=== PATIENT | female | born 1995 | race Two or more races ===

== ENCOUNTER 2019-01-15 06:18 | Inpatient (IN) | payer MEDICAID ==
[2019-01-15] MEDS ORDERED: Ondansetron 4 MG/2 ML SDV IVPUSH PRN (07:11)
[2019-01-15] MEDS ORDERED: Sodium Chloride 0.9% 10 ML SDV FLUSH PRN (07:11)
[2019-01-15] MEDS ORDERED: Nalbuphine 20 MG/ML 1 ML Syringe IVPUSH PRN (07:11)
[2019-01-15] MEDS ORDERED: Oxytocin/Lactated Ringers 10 UNIT/1,000 ML BAG IV SCH ×2 (07:15)
[2019-01-15] MEDS ORDERED: fentaNYL 100 MCG/2 ML SDV EPIDUR PRN (09:45)
[2019-01-15] MEDS ORDERED: diphenhydrAMINE 50 MG/ML SDV IVPUSH PRN (09:45)
[2019-01-15] MEDS ORDERED: fentaNYL/Bupivacaine-NS 2 MCG/ML-0.125%/PF 100 ML Bag EPIDUR PRN (09:45)
[2019-01-15] MEDS ORDERED: ePHEDrine 50 MG/ML SDV IVPUSH PRN (09:45)
--- NOTE | 2019-01-15 09:47 | PCM.LDHP ---
L&D History of Present Illness - General Date of Service: 01/15/19 Admit Problem/Dx: Patient Status Order with Admit Dx/Problem 01/15/19 06:32 Patient Status [ADT] Routine 01/15/19 07:12 Patient Status [ADT] Routine Admission Diagnosis/Problem Admission Diagnosis/Problem 01/15/19 09:37 Gia is a 23-year-old 2 para 0010 female who was admitted on the a.m. of 01/15/2019 with reported spontaneous rupture membranes at 0300 hrs. She is in early active labor. Amniotic fluid is clear. - History of Present Illness Introduction:: Gia Is a 23-year-old 2 para 0010 female who is admitted with spontaneous rupture membranes on the a.m. of 01/15/2019. Patient is a of Dr. Harris's with an JENELLE of 02/03/2019 by LMP and ultrasound placing her at approximately 37-1/7 weeks gestational age upon admission. Patient had a gush of fluid at approximately 0300 hrs. It is been clear. She started having mild contractions which she reports as menstrual cramps. Baby has been active. course: Patient entered care late at approximately 23-5/7 weeks as she and her were attempting to locate a oyster grower to manage the but was not able to find one in this area. She was seen approximately 6 times throughout the . Her weight gain was from approximately 118 pounds to 138 pounds for 20 pound weight gain. She reported good activity. She had T dap immunization. She did develop itching late in and reports that she has intrahepatic cholestasis of . She reports this was documented with laboratory testing showing increased liver function studies and bile acid levels. That data is not available in her chart. Laboratory results in include the following: Blood is O+ with a negative antibody screen. Rubella titer is equivocal. RPR is nonreactive. Hepatitis B surface anesthesia and is negative. HIV assay is negative. First visit labs including hemoglobin 12.4 and platelets 235. Her 1 hour glucose was 90 mg/dL. GC was not identified. Group B strep screen was negative by patient's history. Allergies: Environmental. No medication allergies Medications: 1. vitamins 1 daily 2. Patient just is finished a course of antibiotics for breast infection. Past medical history: 1. Miscarriagefirst trimesterAugust 2017 2. Intrahepatic cholestasis of with this by patient history. Past surgical history: Unremarkable Family history: Mother is alive and well. Father with hypercholesterolemia. One sister with anemia in . 3 brothers alive and well. Maternal grandmother with hypertension with resultant eye problems in one of her eyes related to this. Maternal grandfather alive and well. Paternal grandmother alive and well. Paternal grandfather secondary to motor vehicle accident. Anesthesia, bleeding, blood clotting problems noted in the family. Social history: Patient moved to the [place], [place] approximately 1 year ago because of her 's work. He works at [employer] in the [employer] as a concrete mixing truck driver. She does not use any significant most alcohol, drugs or tobacco. In [place], [place]. Review of systems: In general patient has no complaints. Skin: Negative with the exception of itching which has improved a lot the last week. Lungs: No infectious symptoms or shortness of breath Cardiovascular: No chest pain or exercise intolerance Breasts: History of infection with a lump that was biopsied in [place]. It was found to be benign. [place] to be infectious. It has not resolved by patient history. Patient wishes to breast-feed. GI: Negative : Negative Musculoskeletal: Negative Neurological: Negative In general the patient is well-developed, well-nourished, pleasant female of stated age in no acute distress. Skin is warm dry without lesions. HEENT, neck and back within normal limits. Lungs are clear with good breath sounds in all lung willson. Cardiovascular exam shows regular and rhythm without murmurs. Abdomen is flat, soft, nontender without masses or organomegaly. Positive bowel sounds are noted. No inguinal lymphadenopathy or hernias are noted. Genital exam shows cervix to be 2 cm, 60% effaced, soft, posterior, -3 station, presence of clear amniotic fluid in the vaginal vault consistent with spontaneous rupture membranes. Extremities and neurological exam are grossly within normal limits. - Related Data Allergies/Adverse Reactions: Allergies Allergy/AdvReac Type Severity Reaction Status Date / Time pollen extracts Allergy Itching Verified 01/15/19 06:31 Home Medications: Home Meds PNV95/Ferrous Fumarate/FA [ Tablet] 1 tab PO DAILY 01/15/19 [History] Past Medical History - Past Health History Medical/Surgical History: Denies Medical/Surgical History Gastrointestinal History: Reports: Cholelithiasis Other Gastrointestinal History: with Social & Family History - Family History Family Medical History: Noncontributory - Tobacco Use Smoking Status *Q: Never Smoker Second Hand Smoke Exposure: No - Caffeine Use Caffeine Use: Reports: None - Recreational Drug Use Recreational Drug Use: No H&P Review of Systems - Review of Systems: Review Of Systems: See Below L&D Exam - Exam Exam: See Below - Vital Signs Vital Signs: Last Vital Signs Temp 36.6 C 01/15/19 06:35 Pulse 94 01/15/19 06:37 Resp 16 01/15/19 06:37 BP 134/93 H 01/15/19 06:37 Pulse Ox Weight: 62.686 kg - Patient Data Lab Results Last 24 hrs: Laboratory Results - last 24 hr 01/15/19 01/15/19 01/15/19 Range/Units 06:40 07:24 07:24 WBC 10.03 (3.98-10.04) K/mm3 RBC 4.26 (3.98-5.22) M/mm3 Hgb 12.3 (11.2-15.7) gm/L Hct 37.6 (34.1-44.9) % MCV 88.3 (79.4-94.8) fl MCH 28.9 (25.6-32.2) pg MCHC 32.7 (32.2-35.5) g/dl RDW Std Deviation 41.8 (36.4-46.3) fL Plt Count 254 (182-369) K/mm3 MPV 12.6 H (9.4-12.3) fl Neut % (Auto) 78.4 H (34.0-71.1) % Lymph % (Auto) 14.3 L (19.3-51.7) % [place] % (Auto) 5.8 (4.7-12.5) % Eos % (Auto) 0.9 (0.7-5.8) Baso % (Auto) 0.2 (0.1-1.2) % Neut # (Auto) 7.87 H (1.56-6.13) K/mm3 Lymph # (Auto) 1.43 (1.18-3.74) K/mm3 [place] # (Auto) 0.58 H (0.24-0.36) K/mm3 Eos # (Auto) 0.09 (0.04-0.36) K/mm3 Baso # (Auto) 0.02 (0.01-0.08) K/mm3 Sodium 136 (136-145) mEq/L Potassium 3.7 (3.5-5.1) mEq/L Chloride 102 (98-107) mEq/L Carbon Dioxide 23 (21-32) mEq/L Anion Gap 14.7 (5-15) BUN 7 (7-18) mg/dL Creatinine 0.6 (0.55-1.02) mg/dL Est Cr Clr Drug Dosing 106.53 mL/min Estimated GFR (MDRD) > 60 (>60) mL/min BUN/Creatinine Ratio 11.7 L (14-18) Glucose 95 (74-106) mg/dL Calcium 8.5 (8.5-10.1) mg/dL Total Bilirubin 1.2 H (0.2-1.0) mg/dL AST 40 H (15-37) U/L ALT 112 H (14-59) U/L Alkaline Phosphatase 426 H (46-116) U/L Total Protein 7.6 (6.4-8.2) g/dl Albumin 2.4 L (3.4-5.0) g/dl Globulin 5.2 gm/dL Albumin/Globulin Ratio 0.5 L (1-2) Membrane Rupture Positive H Result Diagrams: 01/15/19 07:24 01/15/19 07:24 Problem List Initiated/Reviewed/Updated: Yes Orders Last 24hrs: Active Orders 24 hr Category Date Time Status Patient Status [ADT] Routine ADT 01/15/19 07:12 Active Activity as Tolerated [RC] PFP Care 01/15/19 07:11 Active Communication Order [RC] ASDIRECTED Care 01/15/19 07:11 Active Heart Tones [RC] ASDIRECTED Care 01/15/19 07:12 Active Notify Provider [RC] PFP Care 01/15/19 07:11 Active Notify Provider [RC] PRN Care 01/15/19 07:11 Active Peripheral IV Care [RC] . DIRECTED Care 01/15/19 07:12 Active Vital Signs [RC] PER UNIT ROUTINE Care 01/15/19 06:32 Active Regular Diet [DIET] Diet 01/15/19 Breakfast Active RAPID PLASMA REAGIN,RPR [CHEM] Routine Lab 01/15/19 07:24 Received Lactated Ringers [Ringers, Lactated] 1,000 ml Med 01/15/19 07:15 Active IV ASDIRECTED Nalbuphine [Nubain] Med 01/15/19 07:11 Active 10 mg IVPUSH Q2H PRN Ondansetron [Zofran] Med 01/15/19 07:11 Active 4 mg IVPUSH Q4H PRN Oxytocin/Lactated Ringers [Pitocin in LR 10 Units/1,000 Med 01/15/19 07:15 Active ML] 10 unit in 1,000 ml IV .CONTINUOUS Oxytocin/Lactated Ringers [Pitocin in LR 10 Units/1,000 Med 01/15/19 07:15 Active ML] 10 unit in 1,000 ml IV TITRATE Sodium Chloride 0.9% [Normal Saline] Med 01/15/19 07:11 Active 10 ml FLUSH ASDIRECTED PRN Electronic Heart Tones Ext w TOCO [WOMSER] Oth 01/15/19 07:11 Ordered Routine Electronic Heart Tones Internal [WOMSER] Per Unit Ot 01/15/19 07:11 Ordered Routine Peripheral IV Insertion Adult [OM.PC] Routine Oth 01/15/19 07:11 Ordered Resuscitation Status Routine Resus Stat 01/15/19 06:32 Ordered Medication Orders Lactated Ringer's (Ringers, Lactated) 1,000 mls @ 100 mls/hr IV ASDIRECTED MOI Oxytocin/Lactated Ringer's (Pitocin In Lr 10 Units/1,000 Ml) 10 unit in 1,000 mls @ 500 mls/hr IV .CONTINUOUS MOI Oxytocin/Lactated Ringer's (Pitocin In Lr 10 Units/1,000 Ml) 10 unit in 1,000 mls @ 12 mls/hr IV TITRATE MOI; Protocol Nalbuphine HCl (Nubain) 10 mg IVPUSH Q2H PRN PRN Reason: pain Ondansetron HCl (Zofran) 4 mg IVPUSH Q4H PRN PRN Reason: Nausea/Vomiting Sodium Chloride (Normal Saline) 10 ml FLUSH ASDIRECTED PRN PRN Reason: Keep Vein Open Assessment/Plan Comment:: Assessment: 1. 37-1/7 week intrauterine , spontaneous rupture membranes, early active labor 2. Group B strep negative 3. Rubella equivocalCandidate for MMR after delivery 4. Desires natural labor Plan: 1. Anticipate normal spontaneous vaginal delivery 2. MMR after delivery. Patient allows 3. Intermittent monitoring 4. Support breast-feeding incision 5. Routine labor process recommended. RPR obtained.
[2019-01-15] MEDS ORDERED: Bupivacaine 0.25% 10 ML SDV ONE (12:00)
[2019-01-15] MEDS: Lactated Ringers 1,000 ML IV SCH ×3 (15:11→21:15)
--- NOTE | 2019-01-15 21:03 | PCM.PREANE ---
Preanesthetic Assessment - Anesthesia/Transfusion/Family Hx Anesthesia History: Prior Anesthesia Without Reaction Family History of Anesthesia Reaction: No Transfusion History: No Prior Transfusion(s) - Review of Systems General: Fatigue Pulmonary: No Symptoms Cardiovascular: Dyspnea on Exertion Gastrointestinal: Abdominal Pain (labor pain) Neurological: No Symptoms Other: Reports: None - Physical Assessment Pulse: 113 O2 Sat by Pulse Oximetry: 98 Respiratory Rate: 16 Blood Pressure: 134/93 Temperature: 36.6 C Vital Signs: Last Vital Signs Temp 36.6 C 01/15/19 06:35 Pulse 94 01/15/19 06:37 Resp 16 01/15/19 06:37 BP 134/93 H 01/15/19 06:37 Pulse Ox Height: 1.52 m Weight: 62.686 kg ASA Class: 2 Mental Status: Alert & Oriented x3 Airway Class: Mallampati = 1 Dentition: Reports: Normal Dentition Thyro-Mental Finger Breadths: 3 Mouth Opening Finger Breadths: 3 ROM/Head Extension: Full Lungs: Clear to Auscultation, Normal Respiratory Effort Cardiovascular: Regular Rate, Regular Rhythm - Lab Values: Laboratory Last Values WBC 10.03 K/mm3 (3.98-10.04) 01/15/19 07:24 RBC 4.26 M/mm3 (3.98-5.22) 01/15/19 07:24 Hgb 12.3 gm/L (11.2-15.7) 01/15/19 07:24 Hct 37.6 % (34.1-44.9) 01/15/19 07:24 MCV 88.3 fl (79.4-94.8) 01/15/19 07:24 MCH 28.9 pg (25.6-32.2) 01/15/19 07:24 MCHC 32.7 g/dl (32.2-35.5) 01/15/19 07:24 RDW Std Deviation 41.8 fL (36.4-46.3) 01/15/19 07:24 Plt Count 254 K/mm3 (182-369) 01/15/19 07:24 MPV 12.6 fl (9.4-12.3) H 01/15/19 07:24 Neut % (Auto) 78.4 % (34.0-71.1) H 01/15/19 07:24 Lymph % (Auto) 14.3 % (19.3-51.7) L 01/15/19 07:24 [place] % (Auto) 5.8 % (4.7-12.5) 01/15/19 07:24 Eos % (Auto) 0.9 (0.7-5.8) 01/15/19 07:24 Baso % (Auto) 0.2 % (0.1-1.2) 01/15/19 07:24 Neut # (Auto) 7.87 K/mm3 (1.56-6.13) H 01/15/19 07:24 Lymph # (Auto) 1.43 K/mm3 (1.18-3.74) 01/15/19 07:24 [place] # (Auto) 0.58 K/mm3 (0.24-0.36) H 01/15/19 07:24 Eos # (Auto) 0.09 K/mm3 (0.04-0.36) 01/15/19 07:24 Baso # (Auto) 0.02 K/mm3 (0.01-0.08) 01/15/19 07:24 Sodium 136 mEq/L (136-145) 01/15/19 07:24 Potassium 3.7 mEq/L (3.5-5.1) 01/15/19 07:24 Chloride 102 mEq/L (98-107) 01/15/19 07:24 Carbon Dioxide 23 mEq/L (21-32) 01/15/19 07:24 Anion Gap 14.7 (5-15) 01/15/19 07:24 BUN 7 mg/dL (7-18) 01/15/19 07:24 Creatinine 0.6 mg/dL (0.55-1.02) 01/15/19 07:24 Est Cr Clr Drug Dosing 106.53 mL/min 01/15/19 07:24 Estimated GFR (MDRD) > 60 mL/min (>60) 01/15/19 07:24 BUN/Creatinine Ratio 11.7 (14-18) L 01/15/19 07:24 Glucose 95 mg/dL (74-106) 01/15/19 07:24 Calcium 8.5 mg/dL (8.5-10.1) 01/15/19 07:24 Total Bilirubin 1.2 mg/dL (0.2-1.0) H 01/15/19 07:24 AST 40 U/L (15-37) H 01/15/19 07:24 ALT 112 U/L (14-59) H 01/15/19 07:24 Alkaline Phosphatase 426 U/L (46-116) H 01/15/19 07:24 Total Protein 7.6 g/dl (6.4-8.2) 01/15/19 07:24 Albumin 2.4 g/dl (3.4-5.0) L 01/15/19 07:24 Globulin 5.2 gm/dL 01/15/19 07:24 Albumin/Globulin Ratio 0.5 (1-2) L 01/15/19 07:24 Membrane Rupture Positive H 01/15/19 06:40 - Allergies Allergies/Adverse Reactions: Allergies Allergy/AdvReac Type Severity Reaction Status Date / Time pollen extracts Allergy Itching Verified 01/15/19 06:31 - Anesthesia Plan Pre-Op Medication Ordered: None - Acknowledgements Anesthesia Type Planned: Epidural Pt an Appropriate Candidate for the Planned Anesthesia: Yes Alternatives and Risks of Anesthesia Discussed w Pt/Guardian: Yes Pt/Guardian Understands and Agrees with Anesthesia Plan: Yes PreAnesthesia Questionnaire - Past Health History Medical/Surgical History: Denies Medical/Surgical History Gastrointestinal History: Reports: Cholelithiasis Other Gastrointestinal History: with - SUBSTANCE USE Smoking Status *Q: Never Smoker Tobacco Use Within Last Twelve Months: No Second Hand Smoke Exposure: No Recreational Drug Use History: No - HOME MEDS Home Medications: Home Meds PNV95/Ferrous Fumarate/FA [ Tablet] 1 tab PO DAILY 01/15/19 [History] - CURRENT (IN HOUSE) MEDS Current Meds: Current Medications Diphenhydramine HCl (Benadryl) 25 mg IVPUSH Q6H PRN PRN Reason: Itching Ephedrine Sulfate (Ephedrine Sulfate) 5 mg IVPUSH ASDIRECTED PRN PRN Reason: HYPOTENTSION Fentanyl (Sublimaze) 100 mcg EPIDUR Q3H PRN PRN Reason: Pain Last Admin: 01/15/19 20:53 Dose: 100 mcg Fentanyl/Bupivacaine HCl (Alxzatej-Xzvoa-Lo 2 Mcg/Ml-0.125%) 100 ml EPIDUR ASDIRECTED PRN PRN Reason: Abdominal Pain Last Admin: 01/15/19 20:55 Dose: 100 ml Lactated Ringer's (Ringers, Lactated) 1,000 mls @ 100 mls/hr IV ASDIRECTED MOI Last Admin: 01/15/19 20:23 Dose: 100 mls/hr Oxytocin/Lactated Ringer's (Pitocin In Lr 10 Units/1,000 Ml) 10 unit in 1,000 mls @ 500 mls/hr IV .CONTINUOUS MOI Oxytocin/Lactated Ringer's (Pitocin In Lr 10 Units/1,000 Ml) 10 unit in 1,000 mls @ 12 mls/hr IV TITRATE MOI; Protocol Last Titration: 01/15/19 20:22 Dose: 2 munits/min, 12 mls/hr Nalbuphine HCl (Nubain) 10 mg IVPUSH Q2H PRN PRN Reason: pain Ondansetron HCl (Zofran) 4 mg IVPUSH Q4H PRN PRN Reason: Nausea/Vomiting Sodium Chloride (Normal Saline) 10 ml FLUSH ASDIRECTED PRN PRN Reason: Keep Vein Open
[2019-01-15] MEDS ORDERED: Lidocaine 1% 50 ML MDV ONE (22:06)
--- NOTE | 2019-01-16 09:58 | PCM.SN ---
- Free Text/Narrative Note: note: Patient is doing well in the period. Minimal lochia, voiding well, ambulated without problems. Nursing without concerns. Patient is afebrile, vital signs are stable Abdomen is flat, soft, uterus is below the umbilicus and is firm and nontender. Legs are nontender. Assessment: recovery going well. Plan: Routine care. Patient be discharged home within the next 24-48 hours.
--- NOTE | 2019-01-16 09:58 | PCM.SN ---
- Free Text/Narrative Note: Gia is a 23-year-old 2 now para 1011 female at 37-1/7 weeks gestational age by early ultrasound done in [place] and second trimester ultrasound done upon establishment of care. She was admitted early on the a.m. of 01/16/2019 having had rupture of membranes at approximately 0300 hrs. She was gasper only very irregularly and mildly. Her cervix was 2 cm dilated. Gross rupture membranes was confirmed. Amniotic fluid was clear. She wanted to proceed with natural labor and was allowed 12 hours of attempted natural increase in her contraction frequency and intensity. At 1500 hrs., since contractions have not increased as desired, the patient was started on Pitocin augmentation to enhance her labor with the does desire to get her delivered within 24 hours of the time of SROM. Patient underwent epidural labor analgesia. The patient's cervix was checked on a routine basis by nursing staff. Progress was felt to be appropriate. At approximately 2200 hrs. I was called to attend delivery. Upon evaluation, the baby was found to be in a mark anthony breech presentation and at a +3, station. Discussion was quickly held with patient and her concerning alternatives of care including vaginal breech delivery, emergent primary section. The risks, benefits for both mom and baby were discussed in detail. The patient at that time, along with her 's input, decided to proceed with a vaginal breech delivery. Piper forcepss were requested to be in the room. Discussion was held patient as to the process of vaginal breech extraction technique. Breech extraction was also reviewed with nursing staff. At 2013 hours a viable cormier, male was born via complete mark anthony breech extraction technique in a left sacrum anterior presentation. Lidocaine 1% 10 mL had been used to infiltrate the perineal area. A midline episiotomy had been made prior to the delivery facilitate the delivery. The patient pushed reasonably well and no major concerns were encountered. She had been having moderately deep variable decelerations with contractions prior to the delivery but variability remained good. Immediately after delivery the baby, the placenta delivered. The cord was clamped 2, cut and the placenta was put in a tray. The baby was taken to the prewarmed radiant warmer. Positive pressure ventilation with mask was then undertaken. Patient's O2 saturation increased and within 2-3 minutes was at the 90-95% level. The baby began crying and breathing on his own. scores were 2, 6 and 6 at 1, 5 and 10 minutes respectively. Pitocin via IV was increased immediately after delivery of the baby to facilitate increase in uterine tone and reduce likelihood of uterine bleeding. Baby's weight was 2330 g (5 pounds 2.2 ounces). The length was 17.0 inches. The placenta had been noted to be delivered in a Oscar presentation. A segment of cord was secured for cord blood gases. Placenta was discarded per patient desire. Midline episiotomy was repaired with 3-0 Monocryl suture in a routine fashion. Patient tolerated the repair well. Estimated blood loss was 100 mL. Patient plans to breast-feed. Condition: Good.
[2019-01-16] MEDS ORDERED: Ibuprofen 600 MG Tab PO PRN (11:43)
[2019-01-16] MEDS ORDERED: Benzocaine/Menthol 20%-0.5% Spray 56 GM Canister TOP PRN (13:02)
[2019-01-16] MEDS ORDERED: Witch Hazel Medicated Pads 40/Jar TOP PRN (13:02)
[2019-01-16] MEDS ORDERED: Docusate Sodium 100 MG Cap PO PRN (13:02)
[2019-01-16] MEDS ORDERED: Acetaminophen 325 MG Tab PO PRN (13:02)
[2019-01-16] MEDS ORDERED: Lanolin 100% Cream 7 GM Tube TOP PRN (13:02)
--- NOTE | 2019-01-16 13:08 | PCM48HPAN ---
Post Anesthesia Note - EVALUATION WITHIN 48HRS OF ANESTHETIC Vital Signs in Normal Range: Yes Patient Participated in Evaluation: Yes Respiratory Function Stable: Yes Airway Patent: Yes Cardiovascular Function Stable: Yes Hydration Status Stable: Yes Pain Control Satisfactory: Yes Nausea and Vomiting Control Satisfactory: Yes Mental Status Recovered: Yes Pulse Rate: 93 Resp Rate: 12 Temperature: 36.6 C Blood Pressure: 119/86 - COMMENTS/OBSERVATIONS Free Text/Narrative:: no anesthesia complications noted
--- NOTE | 2019-01-17 07:16 | PCM.DCSUM1 ---
Discharge Summary - Hospital Course Free Text/Narrative:: Gia is a 23-year-old 2 now para 1011 female at 37-1/7 weeks gestational age by early ultrasound done in [place] and second trimester ultrasound done upon establishment of care. She was admitted early on the a.m. of 01/16/2019 having had rupture of membranes at approximately 0300 hrs. She was gasper only very irregularly and mildly. Her cervix was 2 cm dilated. Gross rupture membranes was confirmed. Amniotic fluid was clear. She wanted to proceed with natural labor and was allowed 12 hours of attempted natural increase in her contraction frequency and intensity. At 1500 hrs., since contractions have not increased as desired, the patient was started on Pitocin augmentation to enhance her labor with the does desire to get her delivered within 24 hours of the time of SROM. Patient underwent epidural labor analgesia. The patient's cervix was checked on a routine basis by nursing staff. Progress was felt to be appropriate. At approximately 2200 hrs. I was called to attend delivery. Upon evaluation, the baby was found to be in a mark anthony breech presentation and at a +3, station. Discussion was quickly held with patient and her concerning alternatives of care including vaginal breech delivery, emergent primary section. The risks, benefits for both mom and baby were discussed in detail. The patient at that time, along with her 's input, decided to proceed with a vaginal breech delivery. Piper forcepss were requested to be in the room. Discussion was held patient as to the process of vaginal breech extraction technique. Breech extraction was also reviewed with nursing staff. At 2013 hours a viable cormier, male infant was born via complete mark anthony breech extraction technique in a left sacrum anterior presentation. Lidocaine 1% 10 mL had been used to infiltrate the perineal area. A midline episiotomy had been made prior to the delivery facilitate the delivery. The patient pushed reasonably well and no major concerns were encountered. She had been having moderately deep variable decelerations with contractions prior to the delivery but variability remained good. Immediately after delivery the baby, the placenta delivered. The cord was clamped 2, cut and the placenta was put in a tray. The baby was taken to the prewarmed radiant warmer. Positive pressure ventilation with mask was then undertaken. Patient's O2 saturation increased and within 2-3 minutes was at the 90-95% level. The baby began crying and breathing on his own. scores were 2, 6 and 6 at 1, 5 and 10 minutes respectively. Pitocin via IV was increased immediately after delivery of the baby to facilitate increase in uterine tone and reduce likelihood of uterine bleeding. Baby's weight was 2330 g (5 pounds 2.2 ounces). The length was 17.0 inches. The placenta had been noted to be delivered in a Oscar presentation. A segment of cord was secured for cord blood gases. Placenta was discarded per patient desire. Midline episiotomy was repaired with 3-0 Monocryl suture in a routine fashion. Patient tolerated the repair well. Estimated blood loss was 100 mL. Patient plans to breast-feed. Patient's course has been unremarkable. Her LFTs including AST and ALT are mildly elevated. She has no symptoms or signs of any problems. She is pumping as baby was put passport application examiner to status. She plans to breast-feed. The baby is stable but has had some respiratory concerns. Patient desires discharge home today. Diagnosis: Stroke: No - Discharge Data Discharge Date: 01/17/19 Discharge Disposition: Home, Self-Care 01 Condition: Good - Patient Instructions Diet: Regular Diet as Tolerated (Nursing diet with increased calories and calcium as recommended) Activity: As Tolerated (No intercourse or tampons until bleeding resolves) Driving: May Drive Today Showering/Bathing: May Shower (May take a bath) Notify Provider of: Fever, Increased Pain, Swelling and Redness, Nausea and/or Vomiting - Discharge Plan Home Medications: Home Meds PNV95/Ferrous Fumarate/FA [ Tablet] 1 tab PO DAILY 01/15/19 [History] Acetaminophen [Tylenol] 650 mg PO Q4H PRN tablet 01/17/19 [Rx] Ibuprofen [Motrin] 600 mg PO Q4HR PRN tablet 01/17/19 [Rx] Referrals: Haylee Saez MD [Physician] - (Return to clinic1 weekDrGuilherme Harris.) - Discharge Summary/Plan Comment DC Time >30 min.: No Discharge Summary/Plan Comment: Discharge instructions: 1. Discharge home 2. Diet, activity and follow-up discussed with patient. Recommend nursing diet with increased calories and calcium. 3. Precautions given concern increased pain, bleeding, temperature, signs/ symptoms of DVT/PE. 4. Medications per home medication was printed, discussed with and given to the patient. 5. Return to clinic-Dr. Harris at [facility] in 1 weeks. Diagnosis: Term -delivered Condition: Good - Patient Data Vitals - Most Recent: Last Vital Signs Temp 36.3 C 01/17/19 03:20 Pulse 71 01/17/19 03:20 Resp 14 01/17/19 03:20 BP 109/67 01/17/19 03:20 Pulse Ox 96 01/17/19 03:20 Weight - Most Recent: 62.686 kg Lab Results - Last 24 hrs: Laboratory Results - last 24 hr 01/15/19 01/17/19 Range/Units 07:24 06:32 WBC 14.30 H (3.98-10.04) K/mm3 RBC 4.04 (3.98-5.22) M/mm3 Hgb 11.6 (11.2-15.7) gm/L Hct 36.5 (34.1-44.9) % MCV 90.3 (79.4-94.8) fl MCH 28.7 (25.6-32.2) pg MCHC 31.8 L (32.2-35.5) g/dl RDW Std Deviation 44.0 (36.4-46.3) fL Plt Count 230 (182-369) K/mm3 MPV 12.4 H (9.4-12.3) fl RPR Non-reactive (NONREACTIVE) Med Orders - Current: Current Medications Acetaminophen (Tylenol) 650 mg PO Q4H PRN PRN Reason: mild pain or fever Benzocaine/Menthol (Dermoplast Pain Relief [place]) 0 gm TOP ASDIRECTED PRN PRN Reason: Perineal Comfort Measure Docusate Sodium (Colace) 100 mg PO BID PRN PRN Reason: Constipation Emollient Ointment (Lansinoh Hpa) 0 gm TOP ASDIRECTED PRN PRN Reason: Sore Nipples Oxytocin/Lactated Ringer's (Pitocin In Lr 10 Units/1,000 Ml) 10 unit in 1,000 mls @ 12 mls/hr IV TITRATE MOI; Protocol Last Titration: 01/15/19 21:49 Dose: 0 munits/min, 0 mls/hr Ibuprofen (Motrin) 600 mg PO Q4HR PRN PRN Reason: Pain Last Admin: 01/16/19 12:02 Dose: 600 mg Measles/Mumps/Rubella Vaccine Live (M-M-R Ii Vaccine) 0.5 ml SUBCUT .ONCE ONE Stop: 01/17/19 10:01 Non-Formulary Medication (Pnv95/Ferrous Fumarate/Fa [ Tablet]) 1 tab PO DAILY [facility] Ashley Alvarez (Tucks) 1 pad TOP ASDIRECTED PRN PRN Reason: Pain Discontinued Medications Bupivacaine HCl (Sensorcaine-Mpf 0.25%) 10 ml .ROUTE .STK-MED ONE Stop: 01/15/19 12:01 Diphenhydramine HCl (Benadryl) 25 mg IVPUSH Q6H PRN PRN Reason: Itching Ephedrine Sulfate (Ephedrine Sulfate) 5 mg IVPUSH ASDIRECTED PRN PRN Reason: HYPOTENTSION Fentanyl (Sublimaze) 100 mcg EPIDUR Q3H PRN PRN Reason: Pain Last Admin: 01/15/19 20:53 Dose: 100 mcg Fentanyl/Bupivacaine HCl (Rzgpzynb-Ckyms-Fs 2 Mcg/Ml-0.125%) 100 ml EPIDUR ASDIRECTED PRN PRN Reason: Abdominal Pain Last Admin: 01/15/19 20:55 Dose: 100 ml Lactated Ringer's (Ringers, Lactated) 1,000 mls @ 100 mls/hr IV ASDIRECTED [facility] Last Admin: 01/15/19 21:15 Dose: 100 mls/hr Oxytocin/Lactated Ringer's (Pitocin In Lr 10 Units/1,000 Ml) 10 unit in 1,000 mls @ 500 mls/hr IV .CONTINUOUS [facility] Lidocaine HCl (Xylocaine 1%) Confirm Administered Dose 50 ml .ROUTE .STK-MED ONE Stop: 01/15/19 22:07 Last Admin: 01/15/19 22:10 Dose: 50 ml Nalbuphine HCl (Nubain) 10 mg IVPUSH Q2H PRN PRN Reason: pain Ondansetron HCl (Zofran) 4 mg IVPUSH Q4H PRN PRN Reason: Nausea/Vomiting Sodium Chloride (Normal Saline) 10 ml FLUSH ASDIRECTED PRN PRN Reason: Keep Vein Open
[2019-01-17] MEDS ORDERED: Prenatal Multivitamin with Calcium/Folic Acid/Iron Tab PO SCH (09:00)
[2019-01-17] MEDS ORDERED: Measles, Mumps & Rubella Vaccine 0.5 ML SDV SUBCUT ONE (10:00)
== END 2019-01-17 09:05 | disposition home or self-care (01) | DRG 807 ==
LOC: JD.OB 06:18 → JD.OBCHECK 06:18 → JD.OB 07:12 → OBSVTOIN 22:13 → JD.OB 22:13
PROVIDERS: ADMIT Obstetrics & Gynecology; ATTEND Obstetrics & Gynecology
PROC: 10D07Z8 Extraction of Products of Conception, Other, Via Natural or Artificial Opening (ICD-10-PCS; principal; 2019-01-16)
PROC: 0W8NXZZ Division of Female Perineum, External Approach (ICD-10-PCS; principal; 2019-01-16)
DX: O32.1XX0 Maternal care for breech presentation, not applicable or unspecified (principal); Z37.0 Single live birth; Z3A.37 37 weeks gestation of pregnancy
CPT/HCPCS: 36415; 51702; 59025; 59409; 80053; 84112; 85025; 85027; 86592; A9270-GY; J2001; J2590; J3010; J3490; J7120

== ENCOUNTER 2020-07-02 07:47 | Inpatient (IN) | payer MEDICAID ==
[2020-07-02] MEDS ORDERED: Sodium Chloride 0.9% 10 ML Syringe FLUSH PRN (08:04)
[2020-07-02] MEDS ORDERED: Nalbuphine 10 MG/ML Syringe IVPUSH PRN (08:04)
[2020-07-02] MEDS ORDERED: Ondansetron 4 MG/2 ML SDV IVPUSH PRN (08:04)
[2020-07-02] MEDS ORDERED: Ampicillin 2 GM AdvVial IV ONE (08:09)
[2020-07-02] MEDS ORDERED: Sodium Chloride 0.9% 100 ML ONE (08:10)
[2020-07-02] MEDS ORDERED: Lactated Ringers 1,000 ML IV SCH (08:15)
[2020-07-02] MEDS ORDERED: Oxytocin/Lactated Ringers 10 UNIT/1,000 ML BAG IV SCH (08:15)
--- NOTE | 2020-07-02 08:41 | PCM.LDHP ---
L&D History of Present Illness - General Date of Service: 07/02/20 Admit Problem/Dx: Patient Status Order with Admit Dx/Problem 07/02/20 08:04 Patient Status [ADT] Routine Admission Diagnosis/Problem Admission Diagnosis/Problem - History of Present Illness Introduction:: 24 year old at 38w4d here in active labor. Contractions started about 24 hours ago. Progressively stronger. Presents 7 cm. Timing/Duration: Reports: seconds: - Related Data Allergies/Adverse Reactions: Allergies Allergy/AdvReac Type Severity Reaction Status Date / Time pollen extracts Allergy Itching Verified 01/15/19 06:31 Home Medications: Home Meds Pnv No.95/Ferrous Fum/Folic AC [ Tablet] 1 tab PO DAILY 01/15/19 [History] Past Medical History - Past Health History Medical/Surgical History: Denies Medical/Surgical History Gastrointestinal History: Reports: Cholelithiasis Other Gastrointestinal History: with Social & Family History - Family History Family Medical History: Noncontributory - Caffeine Use Caffeine Use: Reports: None H&P Review of Systems - Review of Systems: Review Of Systems: See Below General: Reports: No Symptoms HEENT: Reports: No Symptoms Pulmonary: Reports: No Symptoms Cardiovascular: Reports: No Symptoms Gastrointestinal: Reports: No Symptoms Genitourinary: Reports: No Symptoms Musculoskeletal: Reports: No Symptoms Skin: Reports: No Symptoms Psychiatric: Reports: No Symptoms Neurological: Reports: No Symptoms Hematologic/Lymphatic: Reports: No Symptoms Immunologic: Reports: No Symptoms L&D Exam - Exam Exam: See Below - Vital Signs Weight: 63.049 kg - OB Specific Contraction Intensity: Moderate to Strong Movement: Active Heart Tones: Present - Greenberg Score Greenberg Score Cervix Position: Anterior Greenberg Score Consistency: Soft Greenberg Score Effacement: >80% Greenberg Score Dilation: > 5 cm Greenberg Score Infant's Station: -2 Greenberg Score Total: 11 - Exam General: Alert, Oriented HEENT: PERRLA, Conjunctiva Clear, EACs Clear, EOMI, Hearing Intact, Mucosa Moist & Causey, Nares Patent, Normal Nasal Septum, Posterior Pharynx Clear, TMs Clear Neck: Supple, Trachea Midline Lungs: Clear to Auscultation, Normal Respiratory Effort Cardiovascular: Regular Rate, Regular Rhythm GI/Abdominal Exam: Normal Bowel Sounds, Soft, Non-Tender, No Organomegaly, No Distention, No Abnormal Bruit, No Mass, Pelvis Stable Back Exam: Normal Inspection Extremities: Normal Inspection, Normal Range of Motion, Non-Tender, No Pedal Edema, Normal Capillary Refill Skin: Warm, Dry, Intact Neurological: Cranial Nerves Intact, Reflexes Equal Bilateral Psychiatric: Alert, Normal Affect, Normal Mood - Patient Data Lab Results Last 24 hrs: Laboratory Results - last 24 hr 07/02/20 Range/Units 08:16 WBC 11.95 H (3.98-10.04) K/mm3 RBC 4.38 (3.98-5.22) M/mm3 Hgb 12.5 (11.2-15.7) gm/dl Hct 38.3 (34.1-44.9) % MCV 87.4 (79.4-94.8) fl MCH 28.5 (25.6-32.2) pg MCHC 32.6 (32.2-35.5) g/dl RDW Std Deviation 42.6 (36.4-46.3) fL Plt Count 190 (182-369) K/mm3 MPV 13.5 H (9.4-12.3) fl Neut % (Auto) 77.0 H (34.0-71.1) % Lymph % (Auto) 15.4 L (19.3-51.7) % [place] % (Auto) 5.7 (4.7-12.5) % Eos % (Auto) 1.3 (0.7-5.8) Baso % (Auto) 0.3 (0.1-1.2) % Neut # (Auto) 9.20 H (1.56-6.13) K/mm3 Lymph # (Auto) 1.84 (1.18-3.74) K/mm3 [place] # (Auto) 0.68 H (0.24-0.36) K/mm3 Eos # (Auto) 0.16 (0.04-0.36) K/mm3 Baso # (Auto) 0.03 (0.01-0.08) K/mm3 Result Diagrams: 07/02/20 08:16 Problem List Initiated/Reviewed/Updated: Yes Orders Last 24hrs: Active Orders 24 hr Category Date Time Status Patient Status [ADT] Routine ADT 07/02/20 08:04 Active Activity as Tolerated [RC] PFP Care 07/02/20 08:04 Active Communication Order [RC] ASDIRECTED Care 07/02/20 08:04 Active Heart Tones [RC] ASDIRECTED Care 07/02/20 08:05 Active Non Stress Test [RC] PER UNIT ROUTINE Care 07/02/20 08:04 Active Notify Provider [RC] PFP Care 07/02/20 08:04 Active Notify Provider [RC] PRN Care 07/02/20 08:04 Active Peripheral IV Care [RC] . DIRECTED Care 07/02/20 08:05 Active Vital Signs [RC] PER UNIT ROUTINE Care 07/02/20 08:04 Active Regular Diet [DIET] Diet 07/02/20 Breakfast Active CORONAVIRUS COVID-19 FRANCISCO [MOLEC] Stat Lab 07/02/20 08:16 Received RAPID PLASMA REAGIN,RPR [CHEM] Routine Lab 07/02/20 08:16 Received Ampicillin 1 gm Med 07/02/20 13:00 Active Sodium Chloride 0.9% [Normal Saline] 100 ml IV Q4H Ampicillin 2 gm Med 07/02/20 09:00 Active Sodium Chloride 0.9% [Normal Saline] 100 ml IV ONETIME Lactated Ringers [Ringers, Lactated] 1,000 ml Med 07/02/20 08:15 Active IV ASDIRECTED Nalbuphine [Nubain] Med 07/02/20 08:04 Active 10 mg IVPUSH Q2H PRN Ondansetron [Zofran] Med 07/02/20 08:04 Active 4 mg IVPUSH Q4H PRN Oxytocin/Lactated Ringers [Pitocin in LR 10 Units/1,000 Med 07/02/20 08:15 Active ML] 10 unit in 1,000 ml IV .CONTINUOUS Sodium Chloride 0.9% [Saline Flush] Med 07/02/20 08:04 Active 10 ml FLUSH ASDIRECTED PRN Electronic Heart Tones Ext w TOCO [WOMSER] Oth 07/02/20 08:04 Ordered Routine Electronic Heart Tones Internal [WOMSER] Per Unit Oth 07/02/20 08:04 Ordered Routine Peripheral IV Insertion Adult [OM.PC] Routine Oth 07/02/20 08:04 Ordered Resuscitation Status Routine Resus Stat 07/02/20 08:04 Ordered Medication Orders Ampicillin Sodium 2 gm/ Sodium (Chloride) 100 mls @ 200 mls/hr IV ONETIME ONE Stop: 07/02/20 09:29 Last Admin: 07/02/20 08:10 Dose: 200 mls/hr Documented by: KEITH Ampicillin Sodium 1 gm/ Sodium (Chloride) 100 mls @ 200 mls/hr IV Q4H MOI Oxytocin/Lactated Ringer's (Pitocin In Lr 10 Units/1,000 Ml) 10 unit in 1,000 mls @ 500 mls/hr IV .CONTINUOUS MOI Lactated Ringer's (Ringers, Lactated) 1,000 mls @ 100 mls/hr IV ASDIRECTED MOI Nalbuphine HCl (Nubain) 10 mg IVPUSH Q2H PRN PRN Reason: Pain Ondansetron HCl (Zofran) 4 mg IVPUSH Q4H PRN PRN Reason: Nausea/Vomiting Sodium Chloride (Saline Flush) 10 ml FLUSH ASDIRECTED PRN PRN Reason: Keep Vein Open Assessment/Plan Comment:: Term labor. GBS positive. One dose of antibiotics in. COVID, CBC and type and screen pending. Declines pain medication or epidural. Anticipate .
[2020-07-02] MEDS ORDERED: Ampicillin 2 GM in Sodium Chloride 0.9% 100 ML IV ONE (09:00)
[2020-07-02] MEDS ORDERED: Lidocaine 1% 50 ML MDV ONE (09:54)
--- NOTE | 2020-07-02 10:14 | PCM.SN.2 ---
- Free Text/Narrative Note: Stage I - Patient progressed to complete with overall reassuring heart tones. GBS positive antibiotics given. AROM clear fluid. Stage II - with pushing patient began complaining of back pain and heart tones dropped to 40s-50s. Consented for vacuum. Bladder emptied. Over 4 contractions with one pop off and ritgen maneuver infant delivered. Body and shoulders atraumatically. To maternal abdomen. Cord clamped and cut. To warmer. Stage III - of intact placenta. 3vc. Small 1st degree repaired with 3-0 vicryl. EBL 200.
[2020-07-02] MEDS ORDERED: Docusate Sodium 100 MG Cap PO PRN (10:15)
[2020-07-02] MEDS ORDERED: Witch Hazel Medicated Pads 40/Jar TOP PRN (10:15)
[2020-07-02] MEDS ORDERED: Hydrocortisone Acetate 25 MG Supp RECTAL PRN (10:15)
[2020-07-02] MEDS ORDERED: Benzocaine/Menthol 20%-0.5% Spray 56 GM Canister TOP PRN (10:15)
[2020-07-02] MEDS ORDERED: Lidocaine 1% 20 ML MDV INJECT ONE (12:05)
[2020-07-02] MEDS ORDERED: Ampicillin 1 GM in Sodium Chloride 0.9% 100 ML IV SCH (13:00)
[2020-07-02] MEDS ORDERED: Ibuprofen 600 MG Tab PO PRN (15:15)
--- NOTE | 2020-07-05 00:56 | PCM.DCSUM1 ---
Discharge Summary - Hospital Course Free Text/Narrative:: Admitted in labor. Uncomplicated labor, delivery and course. Doing well today. Desires discharge to home. - Discharge Data Discharge Date: 07/03/20 Discharge Disposition: Home, Self-Care 01 Condition: Good - Referral to Home Health Primary Care Physician: Haylee Saez MD - Patient Instructions Diet: Regular Diet as Tolerated Activity: No Lifting Over 10 Pounds, No Strenuous Activities Driving: May Drive Today Showering/Bathing: May Shower Notify Provider of: Fever, Increased Pain, Swelling and Redness, Drainage, Nausea and/or Vomiting - Discharge Plan *PRESCRIPTION DRUG MONITORING PROGRAM REVIEWED*: No *COPY OF PRESCRIPTION DRUG MONITORING REPORT IN PATIENT EDGAR: No Home Medications: Home Meds Pnv No.95/Ferrous Fum/Folic AC [ Tablet] 1 tab PO DAILY 01/15/19 [History] Benzocaine/Menthol [Dermoplast Pain Relief [place]] 56 gm TOP ASDIRECTED PRN canister 07/03/20 [Rx] Docusate Sodium [Colace] 100 mg PO BID PRN cap 07/03/20 [Rx] Ibuprofen [Motrin] 600 mg PO Q6H PRN tablet 07/03/20 [Rx] witch Kim [Tucks] 1 pad TOP ASDIRECTED PRN pad 07/03/20 [Rx] Patient Handouts: Mastitis, Breast Engorgement, Care After Vaginal Delivery Referrals: Haylee Saez MD [Primary Care Provider] - (make appt for in 2wks ) - Discharge Summary/Plan Comment DC Time >30 min.: No - General Info Date of Service: 07/03/20 Functional Status: Reports: Pain Controlled - Review of Systems General: Reports: No Symptoms HEENT: Reports: No Symptoms Pulmonary: Reports: No Symptoms Cardiovascular: Reports: No Symptoms Gastrointestinal: Reports: No Symptoms Genitourinary: Reports: No Symptoms Musculoskeletal: Reports: No Symptoms Skin: Reports: No Symptoms Neurological: Reports: No Symptoms Psychiatric: Reports: No Symptoms - Patient Data Vitals - Most Recent: Last Vital Signs Temp 36.4 C 07/03/20 14:30 Pulse 73 07/03/20 14:30 Resp 16 07/03/20 08:58 BP 135/89 07/03/20 14:30 Pulse Ox 99 07/03/20 14:30 Weight - Most Recent: 63.049 kg Med Orders - Current: Current Medications Discontinued Medications Ampicillin Sodium (Ampicillin) Confirm Administered Dose 2 gm IV .STK-MED ONE Stop: 07/02/20 08:10 Last Admin: 07/02/20 12:03 Dose: Not Given Documented by: Benzocaine/Menthol (Dermoplast Pain Relief [place]) 0 gm TOP ASDIRECTED PRN PRN Reason: Perineal Comfort Measure Last Admin: 07/02/20 13:21 Dose: 1 can Documented by: Docusate Sodium (Colace) 100 mg PO BID PRN PRN Reason: Constipation Hydrocortisone Acetate (Anucort-Hc) 25 mg RECTAL BID PRN PRN Reason: Hemorrhoid pain Ampicillin Sodium 2 gm/ Sodium (Chloride) 100 mls @ 200 mls/hr IV ONETIME ONE Stop: 07/02/20 09:29 Last Admin: 07/02/20 08:10 Dose: 200 mls/hr Documented by: Ampicillin Sodium 1 gm/ Sodium (Chloride) 100 mls @ 200 mls/hr IV Q4H MOI Oxytocin/Lactated Ringer's (Pitocin In Lr 10 Units/1,000 Ml) 10 unit in 1,000 mls @ 500 mls/hr IV .CONTINUOUS MOI Last Admin: 07/02/20 09:50 Dose: 500 mls/hr Documented by: Lactated Ringer's (Ringers, Lactated) 1,000 mls @ 100 mls/hr IV ASDIRECTED MOI Sodium Chloride (Normal Saline) Confirm Administered Dose 100 mls @ as directed .ROUTE .STK-MED ONE Stop: 07/02/20 08:11 Last Admin: 07/02/20 12:03 Dose: Not Given Documented by: Ibuprofen (Motrin) 600 mg PO Q6H PRN PRN Reason: Pain Last Admin: 07/02/20 18:09 Dose: 600 mg Documented by: Lidocaine HCl (Xylocaine 1%) Confirm Administered Dose 50 ml .ROUTE .STK-MED ONE Stop: 07/02/20 09:55 Last Admin: 07/02/20 10:00 Dose: 50 ml Documented by: Lidocaine HCl (Xylocaine 1%) 50 ml INJECT ONETIME ONE Stop: 07/02/20 12:06 Last Admin: 07/02/20 18:05 Dose: Not Given Documented by: Nalbuphine HCl (Nubain) 10 mg IVPUSH Q2H PRN PRN Reason: Pain Ondansetron HCl (Zofran) 4 mg IVPUSH Q4H PRN PRN Reason: Nausea/Vomiting Sodium Chloride (Saline Flush) 10 ml FLUSH ASDIRECTED PRN PRN Reason: Keep Vein Open Witroseanna Valenteel (Tucks) 1 pad TOP ASDIRECTED PRN PRN Reason: Pain Last Admin: 07/02/20 13:20 Dose: 1 tub Documented by: - Exam General: Reports: Alert, Oriented HEENT: Reports: Pupils Equal, Pupils Reactive, EOMI, Mucous Membr. Moist/[place] Neck: Reports: Supple Lungs: Reports: Clear to Auscultation, Normal Respiratory Effort Cardiovascular: Reports: Regular Rate, Regular Rhythm GI/Abdominal Exam: Normal Bowel Sounds, Soft, Non-Tender, No Organomegaly, No Distention, No Abnormal Bruit, No Mass, Pelvis Stable (Female) Exam: Normal External Exam Rectal (Female) Exam: Normal Exam, Normal Rectal Tone Back Exam: Reports: Normal Inspection, Full Range of Motion Extremities: Normal Inspection, Normal Range of Motion, Non-Tender, No Pedal Edema, Normal Capillary Refill Neurological: Reports: No New Focal Deficit Psy/Mental Status: Reports: Alert, Normal Affect, Normal Mood
== END 2020-07-03 16:00 | disposition home or self-care (01) | DRG 807 ==
LOC: JD.OBCHECK 07:47 → JD.OB 07:47 → JD.OBCHECK 08:03 → JD.OB 08:04 → OBSVTOIN 09:50 → JD.OB 10:55
PROVIDERS: ADMIT Obstetrics & Gynecology; ATTEND Obstetrics & Gynecology
PROC: 10907ZC Drainage of Amniotic Fluid, Therapeutic from Products of Conception, Via Natural or Artificial Opening (ICD-10-PCS; principal; 2020-07-02)
PROC: 10D07Z6 Extraction of Products of Conception, Vacuum, Via Natural or Artificial Opening (ICD-10-PCS; principal; 2020-07-02)
PROC: 0HQ9XZZ Repair Perineum Skin, External Approach (ICD-10-PCS; 2020-07-02)
DX: O99.824 Streptococcus B carrier state complicating childbirth (principal); Z37.0 Single live birth; Z3A.38 38 weeks gestation of pregnancy; O70.0 First degree perineal laceration during delivery; Z20.828 Contact with and (suspected) exposure to other viral communicable diseases
CPT/HCPCS: 36415; 59025; 59409; 85025; 86592; A9270-GY; J0290; J2001; J2590; J7050; J7120; U0002

== ENCOUNTER 2023-07-12 11:13 | Inpatient (IN) | payer MEDICAID ==
[2023-07-12] MEDS ORDERED: Sodium Chloride 0.9% 10 ML Syringe FLUSH PRN (11:23)
[2023-07-12] MEDS ORDERED: Nalbuphine HCl 10 MG/ 1ML Amp IVPUSH PRN (11:23)
[2023-07-12] MEDS ORDERED: Lidocaine 1% 50 ML MDV INJECT PRN (11:23)
[2023-07-12] MEDS ORDERED: Lactated Ringers 1,000 ML IV SCH (11:30)
[2023-07-12] MEDS ORDERED: Oxytocin/Lactated Ringers 10 UNIT/1,000 ML BAG IV SCH (11:30)
[2023-07-12 11:46] LABS: BASOPHILS PERCENT AUTO 0.3 % (0.0-1.0); EOSINOPHILS ABSOLUTE AUTO 0.1 K/mm3 (0.0-0.4); EOSINOPHILS PERCENT AUTO 0.6 % (0.0-6.0); HEMATOCRIT 32.9 % (37.0-47.0); HEMOGLOBIN 10.3 gm/dl (12.0-16.0); IMMATURE GRAN ABSOLUTE AUTO 0.07 K/mm3 (0.00-0.05); IMMATURE GRAN PERCENT AUTO 0.6 % (0.0-0.4); LYMPHOCYTES ABSOLUTE AUTO 1.8 K/mm3 (1.0-4.8); LYMPHOCYTES PERCENT AUTO 15.2 % (24.0-44.0); MEAN CORPUSCULAR HEMOGLOBIN 24.1 pg (28.0-32.0); MEAN CORPUSCULAR HGB CONC 31.3 g/dl (32.0-36.0); MEAN CORPUSCULAR VOLUME 76.9 fl (83.0-99.0); MEAN PLATELET VOLUME 11.8 fl (9.4-12.3); MONOCYTES ABSOLUTE AUTO 0.4 K/mm3 (0.0-0.8); MONOCYTES PERCENT AUTO 3.6 % (0.0-8.0); NEUTROPHILS ABSOLUTE AUTO 9.3 K/mm3 (1.8-7.7); NEUTROPHILS PERCENT AUTO 79.7 % (41.0-71.0); PLATELET COUNT,PLT 237 K/mm3 (150-400); RED BLOOD CELL COUNT 4.28 M/mm3 (4.10-5.30); WHITE BLOOD CELL COUNT,WBC 11.64 K/mm3 (3.9-11.3)
[2023-07-12] MEDS ORDERED: Witch Hazel Medicated Pads 40/Jar TOP PRN (12:38)
[2023-07-12] MEDS ORDERED: Benzocaine/Menthol 20%-0.5% Spray 78 GM Cannister TOP PRN (12:38)
[2023-07-12] MEDS: Ibuprofen 600 MG Tab PO SCH ×2 (16:13→20:48)
[2023-07-12] MEDS ORDERED: Docusate Sodium 100 MG Cap PO SCH (21:00)
[2023-07-12] MEDS ORDERED: Sodium Chloride 0.9% 10 ML Syringe FLUSH SCH (21:00)
[2023-07-12] MEDS: Cephalexin 500 MG Cap PO SCH (23:07)
[2023-07-13] MEDS: Ibuprofen 600 MG Tab PO SCH ×2 (04:37→07:22)
[2023-07-13 06:15] LABS: HEMATOCRIT 30.8 % (37.0-47.0); HEMOGLOBIN 9.9 gm/dl (12.0-16.0)
[2023-07-13] MEDS: Cephalexin 500 MG Cap PO SCH (06:39)
[2023-07-13] MEDS ORDERED: Cephalexin 500 MG Cap PO SCH (22:37)
== END 2023-07-13 11:45 | disposition home or self-care (01) | DRG 807 ==
LOC: JD.OBCHECK 11:13 → JD.OB 11:20 → OBSVTOIN 12:29 → JD.OB 12:30
PROVIDERS: ADMIT Obstetrics & Gynecology; ATTEND Obstetrics & Gynecology
PROC: 10E0XZZ Delivery of Products of Conception, External Approach (ICD-10-PCS; principal; 2023-07-12)
DX: O99.72 Diseases of the skin and subcutaneous tissue complicating childbirth (principal); Z37.0 Single live birth; Z3A.38 38 weeks gestation of pregnancy; L03.012 Cellulitis of left finger
CPT/HCPCS: 36415; 59025; 59409; 85014; 85018; 85025; 86592; A9270-GY; J2590

== ENCOUNTER 2025-05-31 03:51 | Inpatient (IN) | payer MEDICAID ==
[2025-05-31] MEDS ORDERED: Ondansetron 4 MG/2 ML SDV IVPUSH PRN (04:06)
[2025-05-31] MEDS ORDERED: Nalbuphine 10 MG/1 ML Vial IVPUSH PRN (04:06)
[2025-05-31] MEDS ORDERED: Lactated Ringers 1,000 ML IV SCH (04:15)
[2025-05-31] MEDS ORDERED: Oxytocin/0.9 % Sodium Chloride 30 UNIT/500 ML BAG IV SCH (04:15)
[2025-05-31 04:28] LABS: BASOPHILS ABSOLUTE AUTO 0.0 K/mm3 (0.0-0.2); BASOPHILS PERCENT AUTO 0.5 % (0.0-1.0); EOSINOPHILS ABSOLUTE AUTO 0.1 K/mm3 (0.0-0.4); EOSINOPHILS PERCENT AUTO 1.1 % (0.0-6.0); IMMATURE GRAN ABSOLUTE AUTO 0.05 K/mm3 (0.00-0.05); IMMATURE GRAN PERCENT AUTO 0.6 % (0.0-0.4); LYMPHOCYTES ABSOLUTE AUTO 2.6 K/mm3 (1.0-4.8); LYMPHOCYTES PERCENT AUTO 31.6 % (24.0-44.0); MEAN PLATELET VOLUME 13.0 fl (9.4-12.3); MONOCYTES ABSOLUTE AUTO 0.5 K/mm3 (0.0-0.8); MONOCYTES PERCENT AUTO 5.6 % (0.0-8.0); NEUTROPHILS ABSOLUTE AUTO 5.0 K/mm3 (1.8-7.7); NEUTROPHILS PERCENT AUTO 60.6 % (41.0-71.0); NRBC ABSOLUTE 0.00 (0.00-0.02); NRBC PERCENT 0.0 % (0.0-0.2); PLATELET COUNT,PLT 196 K/mm3 (150-400); RED BLOOD CELL COUNT 4.68 M/mm3 (4.10-5.30); WHITE BLOOD CELL COUNT,WBC 8.25 K/mm3 (3.9-11.3)
[2025-05-31] MEDS: Oxytocin/0.9 % Sodium Chloride 30 UNIT/500 ML BAG IV SCH ×2 (05:06→06:51)
[2025-05-31] MEDS: Benzocaine/Menthol 20%-0.5% Spray 78 GM Cannister TOP PRN (07:44)
[2025-05-31] MEDS: Witch Hazel Medicated Pads 40/Jar TOP PRN (07:44)
== END 2025-06-01 08:44 | disposition home or self-care (01) | DRG 807 ==
LOC: JD.OBCHECK 03:51 → JD.OB 03:54 → JD.OBCHECK 04:07 → JD.OB 04:07 → JD.MS 05:11 → OBSVTOIN 05:43 → JD.OB 12:45
PROVIDERS: ADMIT Obstetrics & Gynecology; ATTEND Obstetrics & Gynecology
PROC: 10E0XZZ Delivery of Products of Conception, External Approach (ICD-10-PCS; principal; 2025-05-31)
DX: O80 Encounter for full-term uncomplicated delivery (principal); Z37.0 Single live birth; Z3A.39 39 weeks gestation of pregnancy; Z79.899 Other long term (current) drug therapy
CPT/HCPCS: 36415; 59025; 59409; 85025; 86592; 86850; 86900; 86901; A9270-GY; J2210; J7999